=== PATIENT | male | born 1970 | race Two or more races ===

== ENCOUNTER 2020-11-15 12:03 | Emergency (ER) | payer SELFPAY ==
[~2020-11-15] VITALS: Ht 172.7 cm; Wt 78.0 kg
[2020-11-15] MEDS ORDERED: HYDROCODONE/ACETAMINOPHEN 5/325MG TABLET PO ONE ×2 (14:30→16:00)
[2020-11-15] MEDS ORDERED: TETANUS, DIPHTHERIA, PERTUSSIS VAC/PF 0.5ML (>7YR OLD) IM ONE (15:00)
[2020-11-15] MEDS ORDERED: NAPROXEN 375MG TABLET PO ONE (16:00)
[2020-11-15] MEDS ORDERED: NAPROXEN 250MG TABLET PO ONE (16:15)
[2020-11-15] MEDS ORDERED: IBUPROFEN 600MG TABLET PO ONE (16:15)
[2020-11-15] MEDS ORDERED: BACITRACIN ZINC OINT UDPKT TOP ONE (16:15)
[2020-11-15] MEDS ORDERED: IBUP-2029 MT (17:20)
[2020-11-15] MEDS ORDERED: ACET-2708 MT (17:20)
[2020-11-15] MEDS ORDERED: OXYC-662 MT (17:20)
[2020-11-15 18:43] VITALS: BP 154/83
== END 2020-11-15 18:42 | disposition home or self-care (01) ==
LOC: ER 12:03
DX: S82.492A Other fracture of shaft of left fibula, initial encounter for closed fracture (principal); W18.39XA Other fall on same level, initial encounter; Y93.89 Activity, other specified; Y92.89 Other specified places as the place of occurrence of the external cause; Y99.8 Other external cause status; Z79.899 Other long term (current) drug therapy
CPT/HCPCS: 29515; 73502; 73562; 73590; 73610; 73630; 90715; 99284; A4217; Z7610

== ENCOUNTER 2023-07-06 00:58 | Emergency (ER) | payer OTHER ==
[~2023-07-06] VITALS: Ht 172.7 cm; Wt 95.5 kg
[~2023-07-06 00:58] MED LIST: ACET-2708 MT; IBUP-2029 MT; OXYC-662 MT
[2023-07-06 01:13] VITALS: BP 125/80; PULSE 75; RESP 18; TEMP 98.2; O2SAT 96
== END 2023-07-06 05:45 | disposition left against medical advice (07) ==
LOC: ER 00:58
DX: M54.2 Cervicalgia (principal); M54.9 Dorsalgia, unspecified; Z53.21 Procedure and treatment not carried out due to patient leaving prior to being seen by health care provider
CPT/HCPCS: 99281

== ENCOUNTER 2024-04-17 09:38 | Emergency (ER) | payer OTHER ==
[~2024-04-17] VITALS: Ht 185.4 cm; Wt 95.0 kg
[2024-04-17 09:47] VITALS: BP 158/74; PULSE 93; RESP 18; TEMP 98.2; O2SAT 99
[2024-04-17] MEDS ORDERED: TOPUD MT (11:39)
[2024-04-17] MEDS: IBUPROFEN 400MG TABLET PO ONE (12:18)
== END 2024-04-17 12:24 | disposition home or self-care (01) ==
LOC: ER 09:58
DX: M54.2 Cervicalgia (principal)
CPT/HCPCS: 99282